=== PATIENT | male | born 2000 | race Caucasian/White ===

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

== ENCOUNTER 2023-01-04 17:27 | Emergency (ER) | payer SELFPAY ==
[~2023-01-04] VITALS: Ht 172.7 cm; Wt 77.1 kg
[2023-01-04 17:40] VITALS: BP 146/81
[2023-01-04] MEDS ORDERED: L.E.T. SOLUTION 3 ML SYR TOP ONE (17:45)
[2023-01-04] MEDS ORDERED: ACETAMINOPHEN 500 MG TAB (TYLENOL) PO ONE (17:45)
--- NOTE | 2023-01-04 17:47 | ED Head Injury ---
General Stated Complaint: HEAD INJ Source: patient Exam Limitations: no limitations (ANALY SCHNEIDER APRN) History of Present Illness Date Seen by Provider: Jan 04, 2023 Time Seen by Provider: 17:43 Initial Comments Well-appearing 22-year-old male who presented to the ER via POV with concerns of cut on the back of his head. States that he was power washing outside, became overheated, fell backwards onto a pile of bricks. Bleeding controlled direct pressure prior to arrival. Last tetanus within the last 5 years, unknown exact date. Has mild headache, nothing taken prior to arrival. Believes he had a brief loss of consciousness, a few seconds. No nausea, vomiting, vision changes, neck pain or injuries reported. Occurred: just prior to arrival Location: occipital Loss of Consciousness: brief (seconds) Associated Systoms: Headaches (ANALY SCHNEIDER APRN) Allergies and Home Medications Allergies Coded Allergies: NKANo Known Allergies (Unverified Allergy, Mild, 10/29/08) Patient Home Medication List Home Medication List Reviewed: Yes (ANALY SCHNEIDER APRN) Albuterol (Proair Hfa) 8.5 Gm Hfa.aer.ad, 2 PUFF INH NEEDED, (Reported) Entered as Reported by: EDGARDO LINO on 07/12/112155 Gentamicin Sulfate (Gentak) 3.5 Gm Oint..gm., 1 INCH OU QID Prescribed by: LEANNA LENNON on 07/12/11 2327 Review of Systems Review of Systems Constitutional: see HPI Eyes: No Symptoms Reported (ANALY SCHNEIDER APRN) Past Dabpyrr-Nfgrle-Anknnt Hx Seasonal Allergies Seasonal Allergies: No (ANALY SCHNEIDER APRN) Past Medical History Surgeries: No Respiratory: No Cardiac: No Neurological: No Genitourinary: No Gastrointestinal: No Musculoskeletal: No Endocrine: No HEENT: No Cancer: No Psychosocial: No Integumentary: No Blood Disorders: No (ANALY SCHNEIDER APRN) Physical Exam Vital Signs Vital Signs - First Documented 01/04/23 17:40 Temp 36.4 Pulse 79 Resp 16 B/P (MAP) 146/81 (102) Pulse Ox 100 (SELENA MATHEWS MD) Vital Signs Capillary Refill : (ANALY SCHNEIDER APRN) Height, Weight, BMI Height: '" Weight: lbs. oz. kg; 34.00 BMI Method: General Appearance: WD/WN, no apparent distress HEENT: PERRL/EOMI, normal ENT inspection, pharynx normal Neck: non-tender, full range of motion, normal inspection Cardiovascular: regular rate, rhythm, no murmur Respiratory: lungs clear, normal breath sounds, no respiratory distress, no accessory muscle use Extremities: normal range of motion, non-tender, normal inspection Psychiatric: alert, oriented x 3 Crainal Nerves: normal hearing, normal speech, PERRL Coordination/Gait: normal gait Motor/Sensory: no motor deficit, no sensory deficit Skin: normal color, warm/dry, other (1 cm laceration occiptal region of head) (ANALY SCHNEIDER APRN) [place] Coma Score Best Eye Response: (4) Open Spontaneously Best Verbal Response: (5) Oriented Best Motor Response: (6) Obeys Commands Andrew Total: 15 (ANALY SCHNEIDER APRN) Progress/Results/Core Measures Results/Orders Medications Given in ED Current Medications Medications Dose Ordered Sig/Tessie Route Start Time Stop Time Status Last Admin Dose Admin Acetaminophen 1,000 mg ONCE ONCE PO 01/04/23 17:45 01/04/23 17:46 DC 01/04/23 17:45 1,000 MG Tetracaine/ Epinephrine/ Lidocaine 3 ml ONCE ONCE TOP 01/04/23 17:45 01/04/23 17:46 DC 01/04/23 17:59 3 ML (SELENA MATHEWS MD) Vital Signs/I&O 01/04/23 17:40 Temp 36.4 Pulse 79 Resp 16 B/P (MAP) 146/81 (102) Pulse Ox 100 (SELENA MATHEWS MD) Progress Progress Note : Progress Note Patient examined no acute distress. No focal or gross neurological deficits. Given mechanism we will go ahead and obtain CT of head. He has no concerning findings on exam. No need for tetanus at this time. We will plan to apply let and approximate laceration with doug. CT imaging reviewed and interpreted and no acute fracture seen, pending radiolo gy review. Final review of CT shows no acute fractures, intracranial hemorrhage. Laceration cleansed with wound wash, let applied. Approximated laceration with 2 doug, tolerated well. Discharge plan of care reviewed and he is agreeable with plan.Strict return precautions discussed, family verbalized understanding. (ANALY SCHNEIDER APRN) Diagnostic Imaging Diagonstic Imaging: CT Comments [facility], [place] NAME: RUBEN CARVAJAL II [facility] REC#: [id number] PT STATUS: REG ER : 2001 PHYSICIAN: ANALY SCHNEIDER APRN ADMIT DATE: 01/04/23/ER Draft Date of Exam:01/04/23 CT HEAD WO PROCEDURE: CT head without contrast. TECHNIQUE: Multiple contiguous axial images were obtained through the brain without the use of intravenous contrast. Auto Exposure Controls were utilized during the CT exam to meet ALARA standards for radiation dose reduction. INDICATION: 22-year-old male, status post fall, hitting back of head on bricks, pain. CORRELATION: None FINDINGS: There is no midline shift or mass effect. The ventricles and sulci are unremarkable. No evidence for acute intracranial hemorrhage, abnormal extra-axial fluid collections or cerebral edema is present. The basilar cisterns are unremarkable. The bony calvarium is intact. The visualized paranasal sinuses and mastoid air cells are clear. IMPRESSION: Negative appearing noncontrast CT of the head. Dictated on workstation # [id number] Dict: 01/04/23 1753 Trans: 01/04/23 175 DO [id number] Interpreted by: CLIFF PRITCHARD DO Electronically signed by: Reviewed: Reviewed by Me (ANALY SCHNEIDER APRN) Departure Impression Primary Impression: Head injury, closed, with brief LOC Additional Impressions: Fall on same level Laceration of head Disposition: 01 HOME, SELF-CARE Condition: Stable Departure-Patient Inst. Decision time for Depature: 18:00 (ANALY SCHNEIDER APRN) Referrals: NO,LOCAL PHYSICIAN (PCP/Family) Primary Care Physician Patient Instructions: Laceration Repair With [place] [facility], Head Injury in Adults (DC) Add. Discharge Instructions: Plan: 1. Discharge home. 2. Observe the patient for 24-48 hours. Contact your famliy physician, or return to the ER immeidately if any of the following are observed. -Repeated vomiting -Confusion, delirium or disorientation -Blurred vision or double vision -A difference in pupil size comparing left to right (black part of the eye) -Twitching or convulsions -Clear or blood fluid from the nose or ears -Persistent headaches or the worst headache of your life -Weakness of face, arm or leg muscles -Difficulty in rousing patient (the patient should be awakened every 2 hours during the first night) 3. Take nothing stronger than Tylenol or Ibuprofenfor pain. 4. Avoid alcohol intake. 5. Return to ER for any other new, concerning, or worsening symptoms. ATTENDING PHYSICIAN NOTE: I was physically present as attending physician in the emergency department during the care of this patient, but I was not directly involved in the decision making or delivery of care for this patient. (SELENA MATHEWS MD) ANALY SCHNEIDER APRN Jan 04, 2023 17:47 SELENA MATHEWS MD Jan 04, 2023 19:14
--- NOTE | 2023-01-04 17:56 | Diagnostic Imaging Report ---
PROCEDURE: CT head without contrast. TECHNIQUE: Multiple contiguous axial images were obtained through the brain without the use of intravenous contrast. Auto Exposure Controls were utilized during the CT exam to meet ALARA standards for radiation dose reduction. INDICATION: 22-year-old male, status post fall, hitting back of head on bricks, pain. CORRELATION: None FINDINGS: There is no midline shift or mass effect. The ventricles and sulci are unremarkable. No evidence for acute intracranial hemorrhage, abnormal extra-axial fluid collections or cerebral edema is present. The basilar cisterns are unremarkable. The bony calvarium is intact. The visualized paranasal sinuses and mastoid air cells are clear. IMPRESSION: Negative appearing noncontrast CT of the head. Dictated by: Dictated on workstation # [id number]
== END 2023-01-04 18:17 | disposition home or self-care (01) ==
LOC: EDUNIT# 17:27 → ER 17:30
DX: S06.9X1A Unspecified intracranial injury with loss of consciousness of 30 minutes or less, initial encounter (principal); S01.01XA Laceration without foreign body of scalp, initial encounter; R40.2362 Coma scale, best motor response, obeys commands, at arrival to emergency department; R40.2142 Coma scale, eyes open, spontaneous, at arrival to emergency department; R40.2252 Coma scale, best verbal response, oriented, at arrival to emergency department; Z28.310 Unvaccinated for COVID-19; W18.30XA Fall on same level, unspecified, initial encounter; Y93.89 Activity, other specified
CPT/HCPCS: 70450